=== PATIENT | male | born 1975 | race Caucasian/White ===

== ENCOUNTER 2022-10-01 19:09 | Inpatient (IN) | payer SELFPAY ==
[~2022-10-01] VITALS: Ht 160 cm; Wt 83.9 kg
[2022-10-01 20:11] LABS: CLARITY URINE CLEAR (CLEAR); COLOR URINE YELLOW (YELLOW); KETONES URINE NEGATIVE (NEGATIVE); LEUKOCYTE ESTERASE URINE NEGATIVE (NEGATIVE); NITRITE URINE NEGATIVE (NEGATIVE); OCCULT BLOOD URINE NEGATIVE (NEGATIVE); PH URINE 8.5 (4.5-8.0); PROTEIN URINE TRACE (NEGATIVE); SPECIFIC GRAVITY URINE 1.006 (1.005-1.030)
[2022-10-01 20:50] LABS: BASOPHILS % 0.3 % (0.0-2.0); EOSINOPHILS % 0.2 % (0.0-5.0); HEMOGLOBIN. 17.9 g/dL (14.0-18.0); MEAN CORPUSCULAR HEMOGLOBIN 30.4 pg (28.0-32.0); MONOCYTES % 6.6 % (2.0-8.0); NEUTROPHILS % 75.9 % (40.0-76.0); RED BLOOD CELL COUNT 5.91 mill/uL (4.7-6.1); RED CELL DISTRIBUTION WIDTH 14.1 % (11.6-14.6)
[2022-10-01 20:56] LABS: INR 1.2; PROTHROMBIN TIME 12.4 sec (9.6-11.0)
[2022-10-01 20:57] LABS: CHLORIDE 93 mEq/L (98-107)
[2022-10-01 21:06] LABS: ETHANOL BLOOD 102 mg/dL
[2022-10-01 21:45] LABS: MEAN PLATELET VOLUME 8.1 fl (7.4-10.4); PLATELET 229 x1000/uL (130-400)
[2022-10-01] MEDS ORDERED: SODIUM CHLORIDE 0.9% 1,000 ML IV ONE (22:45)
[2022-10-01] MEDS ORDERED: MORPHINE SULFATE 4 MG/ML CPJ (NOT FOR IM USE) IV ONE (23:30)
[2022-10-01] MEDS ORDERED: ONDANSETRON HCL 4MG/2ML INJ IV ONE (23:45)
[2022-10-01] MEDS ORDERED: LORAZEPAM 2MG/ML CPJ IV ONE (23:45)
[2022-10-02] MEDS: SODIUM CHLORIDE 0.9% 1,000 ML IV SCH ×2 (00:45→23:37)
[2022-10-02] MEDS ORDERED: ACETAMINOPHEN 325MG TABLET PO PRN ×2 (00:45)
[2022-10-02] MEDS ORDERED: ONDANSETRON HCL 4MG/2ML INJ IV PRN (00:45)
[2022-10-02] MEDS ORDERED: CLONIDINE 0.1MG TABLET PO PRN (00:45)
[2022-10-02] MEDS ORDERED: DEXTROSE 50% WATER 50ML SYRINGE IV PRN (00:45)
[2022-10-02] MEDS ORDERED: DIPHENHYDRAMINE 50MG/ML VIAL IV PRN (00:45)
[2022-10-02] MEDS ORDERED: MORPHINE SULFATE 2 MG/ML CPJ (NOT FOR IM USE) IV PRN (00:45)
[2022-10-02] MEDS ORDERED: LORAZEPAM 2MG/ML CPJ IV PRN (00:45)
[2022-10-02] MEDS: MVI, ADULT NO.1 10 ML, FOLIC ACID 1 MG, THIAMINE HCL 100 MG in SODIUM CHLORIDE 0.9% 1,0... IV NR ×4 (00:45)
[2022-10-02] MEDS: PANTOPRAZOLE SODIUM 40 MG/VIAL IV SCH ×2 (01:12→23:37)
[2022-10-02] MEDS ORDERED: NALOXONE HCL 0.4MG/ML VIAL IV PRN (01:15)
[2022-10-02 13:25] LABS: *AMPHETAMINES SCREEN URINE NEGATIVE (NEGATIVE); *BARBITURATES SCREEN URINE NEGATIVE (NEGATIVE); *BENZODIAZEPINES SCREEN URINE NEGATIVE (NEGATIVE); *COCAINE SCREEN URINE NEGATIVE (NEGATIVE); CANNABINOID URINE SCREEN NEGATIVE (NEGATIVE); METHADONE URINE SCREEN NEGATIVE (NEGATIVE); OPIATES URINE SCREEN NEGATIVE (NEGATIVE); PHENCYCLIDINE URINE SCREEN NEGATIVE (NEGATIVE)
[2022-10-02 13:30] VITALS: BP 135/88
[2022-10-02] MEDS ORDERED: PNEUMOCOCCAL 23-VAL P-SAC VAC 0.5 ML IM ONE (14:30)
[2022-10-02 16:00] VITALS: BP 130/91
[2022-10-02 20:00] VITALS: BP 130/86
[2022-10-02 20:09] LABS: HEPATITIS B SURFACE ANTIGEN REACTIVE PEND CONFIR
[2022-10-02] MEDS: INSULIN LISPRO 100 UNITS/ML SUBCUT SCH (21:00)
[2022-10-02] MEDS: BLOOD SUGAR DIAGNOSTIC STRIP TEST SCH (21:00)
[2022-10-03] VITALS: BP 128/86
[2022-10-03] MEDS: MVI, ADULT NO.1 10 ML, FOLIC ACID 1 MG, THIAMINE HCL 100 MG in SODIUM CHLORIDE 0.9% 1,0... IV NR ×4 (00:45)
[2022-10-03 04:00] VITALS: BP 117/76
[2022-10-03] MEDS: BLOOD SUGAR DIAGNOSTIC STRIP TEST SCH (06:32)
[2022-10-03] MEDS: SODIUM CHLORIDE 0.9% 1,000 ML IV SCH (06:45)
[2022-10-03 07:46] LABS: BASOPHILS % 0.3 % (0.0-2.0); EOSINOPHILS % 1.3 % (0.0-5.0); HEMOGLOBIN. 14.3 g/dL (14.0-18.0); LYMPHOCYTES % 20.1 % (20.0-50.0); MEAN CORPUSCULAR HEMOGLOBIN 30.5 pg (28.0-32.0); MEAN CORPUSCULAR VOLUME 89.5 fL (80.0-94.0); MEAN PLATELET VOLUME 8.7 fl (7.4-10.4); MONOCYTES % 6.5 % (2.0-8.0); NEUTROPHILS % 71.8 % (40.0-76.0); PLATELET 134 x1000/uL (130-400); RED BLOOD CELL COUNT 4.69 mill/uL (4.7-6.1); RED CELL DISTRIBUTION WIDTH 13.6 % (11.6-14.6)
[2022-10-03] MEDS: INSULIN LISPRO 100 UNITS/ML SUBCUT SCH (07:50)
[2022-10-03 08:00] VITALS: BP 118/77
[2022-10-03 08:11] LABS: CHLORIDE 100 mEq/L (98-107)
[2022-10-03 08:18] LABS: PHOSPHORUS 3.3 mg/dL (2.5-4.9)
[2022-10-03 12:00] VITALS: BP 117/79
[2022-10-03 15:31] VITALS: BP 126/76
[2022-10-03] MEDS ORDERED: FAMOTIDINE 20MG/2ML VIAL IV SCH (21:00)
[2022-10-04 08:11] LABS: HBSAG SCREEN Negative (Negative)
== END 2022-10-03 16:00 | disposition home or self-care (01) | DRG 282 ==
LOC: ER 19:09 → MICUSO 10-02 01:18 → 6EST 10-02 13:20
PROVIDERS: ADMIT Internal Medicine; ATTEND Internal Medicine
DX: K85.90 Acute pancreatitis without necrosis or infection, unspecified (principal); E66.9 Obesity, unspecified; F10.10 Alcohol abuse, uncomplicated; Z68.32 Body mass index [BMI] 32.0-32.9, adult; Y90.5 Blood alcohol level of 100-119 mg/100 ml
CPT/HCPCS: 36415; 74176; 80053; 80305; 80320; 81003; 82962; 83036; 83735; 84100; 85025; 86803; 87340; 93005; 99285; C9113; J2060; J2270; J2405; J3411; J3490; J7030; G0480